=== PATIENT | male | born 1980 | race African-American/Black ===

== ENCOUNTER 2017-02-02 12:39 | Emergency (ER) | payer OTHER ==
[~2017-02-02] VITALS: Ht 180.3 cm; Wt 65.7 kg
[2017-02-02] MEDS ORDERED: NAPROSYN500 MG PO (14:25)
[2017-02-02] MEDS ORDERED: FLEXERIL10 MG PO (14:25)
[2017-02-02 14:35] VITALS: BP 109/71
== END 2017-02-02 14:35 | disposition home or self-care (01) ==
LOC: EME 12:39 → EXP 12:39
DX: M54.2 Cervicalgia (principal); M62.838 Other muscle spasm
CPT/HCPCS: 99281; 99283